=== PATIENT | female | born 1955 | race African-American/Black ===

== ENCOUNTER 2017-09-18 08:56 | Emergency (ER) | payer OTHER ==
[~2017-09-18] VITALS: Ht 172.7 cm; Wt 77.1 kg
[~2017-09-18 08:56] MED LIST: CALCIUM OYSTER500 MG PO; CIPRO250 M1 PO; DIFLUCAN150 MG PO; NOHOMEMEDICATIONS; NORCO 5-325 TA1 EACH PO; PRAVASTATIN SOD40 MG PO; PREDNISONE 10 M10 M1 PO; PREDNISONE 20 M20 MG PO; VISTARIL 25 MG25 M1 PO
[2017-09-18] MEDS ORDERED: NAPROSYN500 MG PO (10:44)
== END 2017-09-18 11:04 | disposition home or self-care (01) ==
LOC: ER 08:56
DX: S80.02XA Contusion of left knee, initial encounter (principal); S80.01XA Contusion of right knee, initial encounter; S70.01XA Contusion of right hip, initial encounter; W01.0XXA Fall on same level from slipping, tripping and stumbling without subsequent striking against object, initial encounter; Y93.89 Activity, other specified; Y92.89 Other specified places as the place of occurrence of the external cause; Y99.8 Other external cause status